=== PATIENT | male | born 1980 ===

== ENCOUNTER 2022-10-26 06:20 | Day surgery (SDC) | payer OTHER ==
[~2022-10-26] VITALS: Ht 170.2 cm; Wt 74.8 kg
== END 2022-10-26 17:00 | disposition home or self-care (01) ==
LOC: CIR.AMB 06:20
PROVIDERS: ATTEND Orthopaedic Surgery Hand Surgery
DX: M71.331 Other bursal cyst, right wrist (principal); M67.431 Ganglion, right wrist; Z20.822 Contact with and (suspected) exposure to COVID-19; E78.00 Pure hypercholesterolemia, unspecified